=== PATIENT | male | born 1980 | race American Indian/Alaskan Native ===

== ENCOUNTER 2022-05-22 10:48 | Emergency (ER) | payer SELFPAY ==
--- NOTE | 2022-05-22 11:27 | XRay Report ---
CHEST 2 VIEWS INDICATION / CLINICAL INFORMATION: sob. COMPARISON: None available. FINDINGS: SUPPORT DEVICES: None. HEART / MEDIASTINUM: No significant abnormality. LUNGS / PLEURA: No significant pulmonary or pleural abnormality. No pneumothorax. ADDITIONAL FINDINGS: No significant additional findings. IMPRESSION: 1. No acute findings. Signer Name: Derrick Villalta MD Signed: 05/22/2022 11:22 AM Workstation Name: [email or web address]
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
[2022-05-22 12:27] VITALS: BP 151/84
--- NOTE | 2022-05-23 10:07 | Electrocardiograph Report ---
[facility] Test Date: 2022-05-22 Test Time: 11:07:20 Pat Name: [employer]ES Department: Room: Gender: M Water Server: TECH : 1980 Requested By: MISTI BETHEA Order Number: [id number] Reading MD: Jeevan Dick Measurements Intervals [place] Rate: 77 P: 62 HI: 160 QRS: 59 QRSD: 97 T: 37 QT: 359 QTc: 408 Interpretive Statements Sinus rhythm ST elev, probable normal early repol pattern No previous ECG available for comparison Electronically Signed On 05-23-2022 10:06:53 EDT by Jeevan Dick
== END 2022-05-22 13:00 | disposition home or self-care (01) ==
LOC: ED 10:48
DX: T59.811A Toxic effect of smoke, accidental (unintentional), initial encounter (principal); Y92.89 Other specified places as the place of occurrence of the external cause
CPT/HCPCS: 71046; 93005; 99283